=== PATIENT | male | born 1965 | race Caucasian/White ===

== ENCOUNTER 2016-05-31 18:01 | Emergency (ER) | payer OTHER | END 2016-05-31 20:24 | disposition home or self-care (01) | LOC: ER1 18:01 | DX: L02.212 Cutaneous abscess of back [any part, except buttock and flank] (principal); F17.210 Nicotine dependence, cigarettes, uncomplicated; Z88.1 Allergy status to other antibiotic agents | CPT/HCPCS: 10061; 87070; 87205; 99283 ==

== ENCOUNTER 2016-06-02 11:21 | Emergency (ER) | payer OTHER | END 2016-06-02 12:13 | disposition home or self-care (01) | LOC: ER1 11:21 | DX: Z48.01 Encounter for change or removal of surgical wound dressing (principal); F17.210 Nicotine dependence, cigarettes, uncomplicated; Z79.899 Other long term (current) drug therapy; Z88.1 Allergy status to other antibiotic agents | CPT/HCPCS: 99282 ==